=== PATIENT | female | born 1980 | race Caucasian/White ===

== ENCOUNTER 2018-03-07 12:47 | Inpatient (IN) ==
--- NOTE | 2018-03-07 13:36 | P.HPOB ---
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 Chief Complaint: urge to push History of Present Illness: 38-year-old at 37 weeks 4 days gestation chief complaint I have the urge to push. Patient of Dr. Atkinson complicated by type 1 diabetes. Previous delivery x2 Weeks Gestation:: 37 Para: 3 : 4 Review of Systems All other systems reviewed negative except as stated in HPI Medications and Allergies Active Medications: Active Medications Citric Acid/Sodium Citrate (Sodium Citrate/Citric Acid Liq) 30 ml PO DYNAMICS AX CONSULTANT ARRON Stop: 03/11/18 13:29 Diphtheria/Pertussis/Tetanus Vacc (Boostrix Vaccine Inj) 0.5 ml IM .ONCE ONE Stop: 03/08/18 16:01 Lactated Ringer's (Lr 1000 Ml Inj) 1,000 mls @ 2,000 mls/hr IV.SIG .Q30M ONE Stop: 03/07/18 13:48 Lactated Ringer's (Lr 1000 Ml Inj) 1,000 mls @ 150 mls/hr IV.CONT .Q6H40M ARRON Oxytocin (Pitocin 30 Units/Ns 500 Ml Premix) 30 units in 500 mls @ 100 mls/hr IV.SIG ONCE ONE Stop: 03/07/18 18:18 Oxytocin (Pitocin 30 Units/Ns 500 Ml Premix) 30 units in 500 mls @ 100 mls/hr IV.SIG UNSCH PRN PRN Reason: Heavy bleeding Lactated Ringer's (Lr 1000 Ml Inj) 1,000 mls @ 100 mls/hr IV.CONT .Q10H ARRON Stop: 03/08/18 14:18 Measles/Mumps/Rubella Vaccine Live (M-M-R Ii Vaccine Inj) 0.5 ml SQ .ONCE ONE Stop: 03/08/18 16:01 Oxycodone/Acetaminophen (Percocet 5/325 Mg) 1 tab PO Q4H PRN PRN Reason: PAIN SCALE 3 TO 5 Oxycodone/Acetaminophen (Percocet 5/325 Mg) 2 tab PO Q4H PRN PRN Reason: PAIN SCALE 6 TO 10 Sodium Chloride (Ns Flush) 2 ml IV.FLUSH BID ARRON Sodium Chloride (Ns Flush) 2 ml IV.FLUSH PRN PRN PRN Reason: FLUSH AFTER USING IV ACCESS Allergies Allergy/AdvReac Type Severity Reaction Status Date / Time No Known Allergies Allergy Verified 02/28/18 15:34 Home Medications Medication Instructions Recorded Confirmed Type PNV cmb#95-ferrous fumarate-FA 1 tab PO DAILY 02/28/18 03/07/18 History [] amoxicillin 500 mg PO QID 02/28/18 03/07/18 History Exam Vital signs: Vital Signs 03/07/18 12:58 Pulse Rate 114 H Blood Pressure 132/91 H Intake & Output 03/06/18 03/07/18 03/07/18 18:59 06:59 18:59 Weight 94.347 kg - Constitutional mild distress - Routine HEENT Exam Head: Present: normocephalic Eye: Present: PERRL ENT: Present: mucous membranes moist - Routine Neck Exam Present: supple - Routine Chest/Breast/Axilla Exam Chest wall: Absent: tenderness - Routine Respiratory Exam Present: CTA bilaterally - Routine Cardiovascular Exam Present: RRR - Routine Abdominal Exam Present: soft - Routine Exam Comments: Fundal height consistent with gestational age. VE 4-5/80%/-1 station question rupture of membranes-I do not feel amniotic sac. - Routine Neurological Exam Present: alert, oriented X3 Caprini VTE Risk Assessment Caprini VTE Risk Assessment: No/Low Risk (score <= 1) Caprini Risk Assessment Model: Point Value = 1 Point Value = 2 Point Value = 3 Point Value = 5 Age 41-60 Minor surgery BMI > 25 kg/m2 Swollen legs Varicose veins or History of unexplained or recurrent spontaneous Oral contraceptives or hormone replacement Sepsis (< 1 month) Serious lung disease, including pneumonia (< 1 month) Abnormal pulmonary function Acute myocardial infarction Congestive heart failure (< 1 month) History of inflammatory bowel disease Medical patient at bed rest Age 61-74 Arthroscopic surgery Major open surgery (> 45 min) Laparoscopic surgery (> 45 min) Malignancy Confined to bed (> 72 hours) Immobilizing plaster cast Central venous access Age >= 75 History of VTE Family history of VTE Factor V Leiden Prothrombin [id number] Lupus anticoagulant Anticardiolipin antibodies Elevated serum homocysteine Heparin-induced thrombocytopenia Other congenital or acquired thrombophilia Stroke (< 1 month) Elective arthroplasty Hip, pelvis, or leg fracture Acute spinal cord injury (< 1 month) Prophylaxis Regimen: Total Risk Factor Score Risk Level Prophylaxis Regimen 0-1 Low Early ambulation 2 Moderate Order ONE of the following: *Sequential Compression Device (SCD) *Heparin 5000 units SQ BID 3-4 Higher Order ONE of the following medications: *Heparin 5000 units SQ TID *Enoxaparin/Lovenox 40 mg SQ daily (WT < 150 kg, CrCl > 30 mL/min) *Enoxaparin/Lovenox 30 mg SQ daily (WT < 150 kg, CrCl > 10-29 mL/min) *Enoxaparin/Lovenox 30 mg SQ BID (WT < 150 kg, CrCl > 30 mL/min) AND/OR *Sequential Compression Device (SCD) 5 or more Highest Order ONE of the following medications: *Heparin 5000 units SQ TID (Preferred with Epidurals) *Enoxaparin/Lovenox 40 mg SQ daily (WT < 150 kg, CrCl > 30 mL/min) *Enoxaparin/Lovenox 30 mg SQ daily (WT < 150 kg, CrCl > 10-29 mL/min) *Enoxaparin/Lovenox 30 mg SQ BID (WT < 150 kg, CrCl > 30 mL/min) AND *Sequential Compression Device (SCD) Assessment and Plan - Diagnosis (1) Previous delivery, antepartum Code(s): O34.219 - Maternal care for unspecified type scar from previous delivery Status: Acute (2) Active labor at term Status: Acute (3) 37 weeks gestation of Code(s): Z3A.37 - 37 weeks gestation of Status: Acute (4) Type 1 diabetes mellitus affecting in third trimester, antepartum Code(s): O24.013 - Pre-existing type 1 diabetes mellitus, in , third trimester Status: Acute - Plan Random blood sugar now 310 patient self administered 4 units of insulin will administer another 4 units. Patient is for delivery alternatives benefits complications understood. Patient's primary ui engineer is at the bedside. Patient also desires tubal sterilization consents to be obtained.
[2018-03-07] MEDS ORDERED: Naloxone Inj 0.4 MG/ML Vial IV.PUSH PRN ×2 (13:37→15:00)
[2018-03-07] MEDS ORDERED: Oxytocin 30 Units/500ml Premix 30 UNITS/500 ML BAG IV.SIG ONE ×2 (13:37→15:54)
[2018-03-07] MEDS ORDERED: Citric Acid/Sodium Citrate Liq 30 ML UDC PO SCH (13:45)
[2018-03-07 14:08] LABS: Baso # (Auto) 0.1 th/mm3 (0.0-0.2); Baso % (Auto) 0.5 % (0.0-2.0); Eos # (Auto) 0.1 th/mm3 (0.0-0.4); Eos % (Auto) 0.6 % (0.0-4.0); Hematocrit 31.2 % (35.0-46.0); Hemoglobin 10.4 gm/dL (11.6-15.3); Lymph # (Auto) 1.2 th/mm3 (1.0-4.8); Lymph % (Auto) 10.8 % (9.0-44.0); Mean Corpuscular HGB Conc 33.5 % (32.0-36.0); Mean Corpuscular Hemoglobin 30.3 pg (27.0-34.0); Mean Corpuscular Volume 90.4 fL (80.0-100.0); Mean Platelet Volume 9.5 fL (7.0-11.0); Mono # (Auto) 0.3 th/mm3 (0.0-0.9); Mono % (Auto) 2.7 % (0.0-8.0); Neut # (Auto) 9.6 th/mm3 (1.8-7.7); Neut % (Auto) 85.4 % (16.0-70.0); Platelet Count 170 th/mm3 (150-450); Red Blood Count 3.45 mil/mm3 (4.00-5.30); Red Cell Distribution Width 12.4 % (11.6-17.2); White Blood Count 11.2 th/mm3 (4.0-11.0)
[2018-03-07] MEDS ORDERED: Morphine Sulfate PF Inj 5 MG/10 ML Ampul ONE (14:15)
[2018-03-07] MEDS ORDERED: Phenylephrine/NS 1000 MCG/10ML Syringe IV.PUSH ONE (14:49)
[2018-03-07] MEDS ORDERED: Simethicone 80 MG Chew Tablet PO PRN (15:54)
[2018-03-07] MEDS ORDERED: Dextrose 50% in Water 50 ML Vial IV.PUSH PRN (15:56)
[2018-03-07 16:05] LABS: Bacteria,Urine Few /hpf; Bilirubin,Urine Negative (Negative); Clarity,Urine Cloudy (Clear); Color,Urine Yellow (Yellw/Straw); Glucose,Urine (UA) 500 or Greater mg/dL (Negative); Leukocyte Esterase,Urine Trace (Negative); Mucus,Urine Few /lpf (Occasional); Nitrite,Urine Negative (Negative); Specific Gravity,Urine 1.018 (1.002-1.035); Squamous Epithelial Cell,Urine 10 /hpf (0-5)
[2018-03-07 16:07] LABS: Amphetamine Screen,Urine Neg (Neg); Barbiturate Screen,Urine Neg (Neg); Cannabinoid Screen,Urine Neg (Neg); Cocaine Screen,Urine Neg (Neg)
--- NOTE | 2018-03-07 16:07 | P.OBDELI ---
Procedure Note - Pre Op Diagnosis (1) Active labor at term (2) Diabetes mellitus affecting in third trimester (3) Previous delivery affecting , delivered - Post Op Diagnosis (1) Previous delivery affecting , delivered Performed by: Tramaine Atkinson MD Procedure: Repeat Low Transverse Section, Other (Bilateral Tubal lighation) Indication for Delivery: Desired elective repeat , Other (sterilization ) Informed Consent Obtained: For anesthesia, For procedure Confirmed Correct: Patient, Procedure, Site, Time-out taken Anesthesia: Spinal Medication Prior to Procedure: As documented in eMAR Monitoring During Procedure: Blood pressure monitoring, 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 Urinary Catheter: Inserted using sterile technique, To dependent drainage Sterile Preparation: Duraprep Position: Supine with wedge to left side - Operative Features Skin Incision: Pfannenstiel Uterine Incision: Low transverse w/knife / blunt ext Membranes Ruptured: Artificially Presentation: Occiput anterior Status of : Viable Placenta Delivered: Intact Medications: Antibiotics, Oxytocin Estimated blood loss (mL): 500 Procedure Tolerated: Well Maternal Condition: Stable Baby Condition: Stable Procedure in Detail: Taken to the operating room identified by name band and verbally and given a spinal anesthetic. She was prepped and draped in the usual sterile manner for a section. A time out was taken. The old incision was excised sharply and the Pfannenstiel incision was made and carried down to the fascia the fascia was nicked bilaterally and the fascia was taken off the rectus muscle by blunt and sharp dissection. The rectus muscles were spread bluntly and the peritoneum was entered under direct vision. The incision was extended with care to avoid the urinary bladder. A bladder blade was placed and a bladder flap was created in the usual fashion. The lower uterine segment was then incised sharply in a transverse manner and taken down in the midline until the uterine cavity was entered. The incision was extended with the surgeon's fingers. The vertex was grasped and with fundal pressure the vertex was delivered without difficulty hypopharynx and nasopharynx were suctioned and the remainder of the infant delivered without difficulty. The cord clamping was delayed 45 seconds and then the cord was clamped cut and the was handed over to the resuscitation team cord blood was obtained the placenta was removed manually and the uterus was curettaged twice with a wet lap. The uterus was delivered from the abdomen. The uterine incision was repaired with 0 chromic in a running fashion in a single layer. Bilateral tubal ligation was performed with polmeroy technique. 1 cm segments excised ans good hemostasis achieved. The cul-de-sac and gutters were cleaned of blood and debris the uterus was delivered back into the abdomen. The rectus muscles were reapproximated with 0 Vicryl in a running the fascia was repaired with 0 Vicryl from lateral to midline bilaterally. The skin was repaired with a 4-0 Monocryl in a subcuticular manner. Patient tolerated the procedure well and went to recovery room in good condition. - Infant : Female, Single (9# 7 oz)
[2018-03-07 16:12] LABS: Opiate Screen,Urine Neg (Neg)
[2018-03-07] MEDS ORDERED: Oxytocin 30 Units/500ml Premix 30 UNITS/500 ML BAG ONE (16:39)
[2018-03-07] MEDS ORDERED: Oxytocin 30 Units/500ml Premix 30 UNITS/500 ML BAG IV.SIG PRN ×2 (18:37→20:54)
[2018-03-07] MEDS: Insulin NovoLIN Regular Correctional Sugar Inj SQ SCH (20:56)
[2018-03-08 05:40] LABS: Baso % (Auto) 0.4 % (0.0-2.0); Eos # (Auto) 0.1 th/mm3 (0.0-0.4); Eos % (Auto) 0.8 % (0.0-4.0); Hematocrit 24.8 % (35.0-46.0); Hemoglobin 8.7 gm/dL (11.6-15.3); Lymph # (Auto) 1.2 th/mm3 (1.0-4.8); Lymph % (Auto) 10.6 % (9.0-44.0); Mean Corpuscular HGB Conc 35.3 % (32.0-36.0); Mean Corpuscular Hemoglobin 30.9 pg (27.0-34.0); Mean Corpuscular Volume 87.5 fL (80.0-100.0); Mean Platelet Volume 8.6 fL (7.0-11.0); Mono # (Auto) 0.8 th/mm3 (0.0-0.9); Mono % (Auto) 6.9 % (0.0-8.0); Neut # (Auto) 9.3 th/mm3 (1.8-7.7); Neut % (Auto) 81.3 % (16.0-70.0); Platelet Count 194 th/mm3 (150-450); Red Blood Count 2.83 mil/mm3 (4.00-5.30); Red Cell Distribution Width 12.6 % (11.6-17.2); White Blood Count 11.4 th/mm3 (4.0-11.0)
--- NOTE | 2018-03-08 08:32 | P.PNOB ---
Subjective Post day: 1 Interval history: doing well accu check good Objective Vital Signs/I&O: Vital Signs 03/07/18 13:21 03/07/18 15:50 03/07/18 16:10 Temperature 98.1 F Pulse Rate 108 H 108 H 100 H Respiratory Rate 21 17 Blood Pressure 157/75 H 128/59 L 113/51 L 03/07/18 16:25 03/07/18 16:34 03/07/18 16:47 Temperature Pulse Rate 92 H 81 87 Respiratory Rate 21 16 14 Blood Pressure 106/55 L 102/49 L 119/55 L 03/07/18 18:10 03/07/18 20:30 03/07/18 23:54 Temperature 97.5 F L 97.7 F 98.2 F Pulse Rate 86 89 85 Respiratory Rate 17 19 17 Blood Pressure 151/73 H 149/77 H 125/71 03/08/18 04:00 Temperature 98.7 F Pulse Rate 73 Respiratory Rate 18 Blood Pressure 122/58 L Intake & Output 03/07/18 03/08/18 03/08/18 18:59 06:59 18:59 Intake Total 1000 / 1000 Balance 1000 / 1000 Weight 118 kg Intake: IV 1000 / 1000 LR 1000 mL Inj 1,000 ML @ 100 1000 / 1000 mls/hr IV.CONT .Q10H [facility] Rx#: [id number] Result Diagrams: 03/08/18 05:05 Objective Remarks: GENERAL: Well-nourished, well-developed patient. . ABDOMEN/GI: Abdomen soft, non-tender. Fundus: Firm, non-tender at umbilicus. GENITOURINARY: Light to moderate bleeding. EXTREMITIES: No cyanosis or edema, non-tender, without signs of DVT. Medications and IVs: Active Medications Dextrose (D50w Vial) 50 ml IV.PUSH UNSCH PRN PRN Reason: PER HYPOGLYCEMIA PROTOCOL Diphenhydramine HCl (Benadryl Inj) 25 mg IV.PUSH Q6H PRN PRN Reason: MILD TO MODERATE ITCHING Stop: 03/08/18 14:59 Diphenhydramine HCl (Benadryl) 50 mg PO Q6H PRN PRN Reason: MILD TO MODERATE ITCHING Stop: 03/08/18 14:59 Diphtheria/Pertussis/Tetanus Vacc (Boostrix Vaccine Inj) 0.5 ml IM .ONCE ONE Stop: 10/04/18 16:01 Glucagon (Glucagon Inj) 1 mg OTHER PRN PRN PRN Reason: for Hypoglycemia Protocol Lactated Ringer's (Lr 1000 Ml Inj) 1,000 mls @ 100 mls/hr IV.CONT .Q10H ARRON Stop: 03/08/18 16:53 Last Admin: 03/08/18 06:36 Dose: 100 mls/hr Oxytocin (Pitocin 30 Units/Ns 500 Ml Premix) 30 units in 500 mls @ 100 mls/hr IV.SIG PRN PRN PRN Reason: Heavy bleeding Stop: 03/08/18 20:53 Acetaminophen (Ofirmev Inj) 1,000 mg in 100 mls @ 400 mls/hr IV.SIG Q8H ARRON Stop: 03/08/18 15:19 Last Admin: 03/07/18 23:31 Dose: 400 mls/hr Ibuprofen (Motrin) 600 mg PO Q6HR PRN PRN Reason: cramping Insulin Human Regular (Novolin R Correctional Sugar Inj) 0 units SQ ACHS AND 3AM ARRON; Protocol Last Admin: 03/07/18 20:56 Dose: Not Given Ketorolac Tromethamine (Toradol Inj) 30 mg IM Q6H PRN PRN Reason: SEE LABEL COMMENTS Stop: 03/12/18 15:53 Measles/Mumps/Rubella Vaccine Live (M-M-R Ii Vaccine Inj) 0.5 ml SQ .ONCE ONE Stop: 03/08/18 16:01 Miscellaneous Information (Misc Nursing Information) 1 each OTHER UNSCH PRN PRN Reason: SEE LABEL COMMENTS Stop: 03/08/18 14:59 Miscellaneous Information ([facility] [place]) 1 each OTHER UNSCH PRN PRN Reason: SEE LABEL COMMENTS Stop: 03/08/18 14:59 Naloxone HCl (Narcan Inj) 0.4 mg IV.PUSH PRN PRN PRN Reason: Resp rate < 10 Naloxone HCl (Narcan Inj) 0.4 mg IV.PUSH UNSCH PRN PRN Reason: SEE LABEL COMMENTS Stop: 03/08/18 14:59 Ondansetron HCl (Zofran Inj) 4 mg IV.PUSH Q6H PRN PRN Reason: NAUSEA OR VOMITING Oxycodone/Acetaminophen (Percocet 5/325 Mg) 1 tab PO Q4H PRN PRN Reason: PAIN SCALE 3 TO 5 Last Admin: 03/08/18 06:36 Dose: 1 tab Oxycodone/Acetaminophen (Percocet 5/325 Mg) 2 tab PO Q4H PRN PRN Reason: PAIN SCALE 6 TO 10 Simethicone (Mylicon Chew) 80 mg PO QID PRN PRN Reason: FLATULENCE Sodium Chloride (Ns Flush) 2 ml IV.FLUSH BID ARRON Sodium Chloride (Ns Flush) 2 ml IV.FLUSH PRN PRN PRN Reason: FLUSH AFTER USING IV ACCESS Assessment and Plan - Diagnosis (1) Diabetes mellitus affecting in third trimester Code(s): O24.913 - Unspecified diabetes mellitus in , third trimester Status: Acute (2) Previous delivery affecting , delivered Code(s): O34.219 - Maternal care for unspecified type scar from previous delivery Status: Acute
[2018-03-08] MEDS: Ibuprofen 600 MG Tablet PO PRN ×2 (08:38→15:28)
[2018-03-08] MEDS: Insulin NovoLIN Regular Correctional Sugar Inj SQ SCH (08:43)
[2018-03-08] MEDS ORDERED: Measles/Mumps/Rubella Vaccine Inj 0.5 ML Vial SQ ONE (16:00)
[2018-03-08] MEDS ORDERED: Diphtheria/Tetanus/Pertussis Vaccine Inj 0.5 ML Syringe IM ONE (16:00)
[2018-03-08 19:56] VITALS: RESP 18
[2018-03-09] MEDS: Ibuprofen 600 MG Tablet PO PRN ×2 (03:11→17:02)
[2018-03-09] MEDS: Insulin NovoLIN Regular Correctional Sugar Inj SQ SCH ×3 (07:23→17:32)
[2018-03-09] MEDS ORDERED: Ketorolac Inj 30 MG/ML (IVP) Vial IV.PUSH ONE (07:42)
--- NOTE | 2018-03-09 07:49 | P.PNOB ---
Subjective Post day: 2 Interval history: 38 yo patient had repeat CS with poorly controlled diabetes. she has insulin pump. complains of cramps that motrin not working Objective Vital Signs/I&O: Vital Signs 03/08/18 08:00 03/08/18 12:00 03/08/18 19:55 Temperature 98.0 F 98.9 F 98.5 F Pulse Rate 83 90 86 Respiratory Rate 20 20 18 Blood Pressure 114/62 100/65 112/67 Result Diagrams: 03/08/18 05:05 Objective Remarks: GENERAL: Well-nourished, well-developed patient. CARDIOVASCULAR: Regular rate and rhythm without murmurs, gallops, or rubs. RESPIRATORY: Breath sounds equal bilaterally. No accessory muscle use. ABDOMEN/GI: Abdomen soft, non-tender. Fundus: Firm, non-tender at umbilicus. GENITOURINARY: Light to moderate bleeding. EXTREMITIES: No cyanosis or edema, non-tender, without signs of DVT. Medications and IVs: Active Medications Dextrose (D50w Vial) 50 ml IV.PUSH UNSCH PRN PRN Reason: PER HYPOGLYCEMIA PROTOCOL Docusate Sodium (Colace) 100 mg PO BID ARRON Glucagon (Glucagon Inj) 1 mg OTHER PRN PRN PRN Reason: for Hypoglycemia Protocol Ibuprofen (Motrin) 600 mg PO Q6HR PRN PRN Reason: cramping Last Admin: 03/09/18 03:11 Dose: 600 mg Insulin Human Regular (Novolin R Correctional Sugar Inj) 0 units SQ ACHS AND 3AM ARRON; Protocol Last Admin: 03/09/18 07:23 Dose: Not Given Ketorolac Tromethamine (Toradol Inj) 30 mg IM Q6H PRN PRN Reason: SEE LABEL COMMENTS Stop: 03/12/18 15:53 Ketorolac Tromethamine (Toradol Inj) 30 mg IV.PUSH ONCE ONE Stop: 03/09/18 07:43 Naloxone HCl (Narcan Inj) 0.4 mg IV.PUSH PRN PRN PRN Reason: Resp rate < 10 Ondansetron HCl (Zofran Inj) 4 mg IV.PUSH Q6H PRN PRN Reason: NAUSEA OR VOMITING Oxycodone/Acetaminophen (Percocet 5/325 Mg) 1 tab PO Q4H PRN PRN Reason: PAIN SCALE 3 TO 5 Last Admin: 03/08/18 06:36 Dose: 1 tab Oxycodone/Acetaminophen (Percocet 5/325 Mg) 2 tab PO Q4H PRN PRN Reason: PAIN SCALE 6 TO 10 Last Admin: 03/09/18 07:17 Dose: 2 tab Simethicone (Mylicon Chew) 80 mg PO QID PRN PRN Reason: FLATULENCE Last Admin: 03/09/18 07:17 Dose: 80 mg Sodium Chloride (Ns Flush) 2 ml IV.FLUSH BID ARRON Last Admin: 03/09/18 03:34 Dose: Not Given Sodium Chloride (Ns Flush) 2 ml IV.FLUSH PRN PRN PRN Reason: FLUSH AFTER USING IV ACCESS Assessment and Plan - Diagnosis (1) Diabetes mellitus affecting in third trimester Code(s): O24.913 - Unspecified diabetes mellitus in , third trimester Status: Acute (2) Previous delivery affecting , delivered Code(s): O34.219 - Maternal care for unspecified type scar from previous delivery Status: Acute
[2018-03-09] MEDS: Docusate Sodium 100 MG Capsule PO SCH (08:39)
[2018-03-10] MEDS: Insulin NovoLIN Regular Correctional Sugar Inj SQ SCH ×4 (00:16→12:24)
[2018-03-10] MEDS: Ibuprofen 600 MG Tablet PO PRN ×3 (01:10→14:10)
[2018-03-10] MEDS: Docusate Sodium 100 MG Capsule PO SCH ×2 (05:31→08:00)
[2018-03-10 08:18] VITALS: BP 126/69; PULSE 68; TEMP 97.8
--- NOTE | 2018-03-10 10:14 | P.PNOB ---
Subjective Post day: 3 Interval history: post CS day #3 sugar controlled and doing well. Baby in NICU breast feeding Objective Vital Signs/I&O: Vital Signs 03/09/18 20:00 03/10/18 08:00 Temperature 98.0 F 97.8 F Pulse Rate 64 68 Respiratory Rate 18 18 Blood Pressure 128/68 126/69 Result Diagrams: 03/08/18 05:05 Objective Remarks: GENERAL: Well-nourished, well-developed patient. ABDOMEN/GI: Abdomen soft, non-tender. Fundus: Firm, non-tender at umbilicus. GENITOURINARY: Light to moderate bleeding. EXTREMITIES: No cyanosis or edema, non-tender, without signs of DVT. Medications and IVs: Active Medications Dextrose (D50w Vial) 50 ml IV.PUSH UNSCH PRN PRN Reason: PER HYPOGLYCEMIA PROTOCOL Docusate Sodium (Colace) 100 mg PO BID ARRON Last Admin: 03/10/18 08:00 Dose: 100 mg Glucagon (Glucagon Inj) 1 mg OTHER PRN PRN PRN Reason: for Hypoglycemia Protocol Ibuprofen (Motrin) 600 mg PO Q6HR PRN PRN Reason: cramping Last Admin: 03/10/18 08:00 Dose: 600 mg Insulin Human Regular (Novolin R Correctional Sugar Inj) 0 units SQ ACHS AND 3AM ARRON; Protocol Last Admin: 03/10/18 08:04 Dose: Not Given Ketorolac Tromethamine (Toradol Inj) 30 mg IM Q6H PRN PRN Reason: SEE LABEL COMMENTS Stop: 03/12/18 15:53 Naloxone HCl (Narcan Inj) 0.4 mg IV.PUSH PRN PRN PRN Reason: Resp rate < 10 Ondansetron HCl (Zofran Inj) 4 mg IV.PUSH Q6H PRN PRN Reason: NAUSEA OR VOMITING Oxycodone/Acetaminophen (Percocet 5/325 Mg) 1 tab PO Q4H PRN PRN Reason: PAIN SCALE 3 TO 5 Last Admin: 03/09/18 15:41 Dose: 1 tab Oxycodone/Acetaminophen (Percocet 5/325 Mg) 2 tab PO Q4H PRN PRN Reason: PAIN SCALE 6 TO 10 Last Admin: 03/10/18 08:01 Dose: 2 tab Simethicone (Mylicon Chew) 80 mg PO QID PRN PRN Reason: FLATULENCE Last Admin: 03/09/18 07:17 Dose: 80 mg Sodium Chloride (Ns Flush) 2 ml IV.FLUSH BID ARRON Last Admin: 03/10/18 08:06 Dose: Not Given Sodium Chloride (Ns Flush) 2 ml IV.FLUSH PRN PRN PRN Reason: FLUSH AFTER USING IV ACCESS Assessment and Plan - Diagnosis (1) Diabetes mellitus affecting in third trimester Code(s): O24.913 - Unspecified diabetes mellitus in , third trimester Status: Acute (2) Previous delivery affecting , delivered Code(s): O34.219 - Maternal care for unspecified type scar from previous delivery Status: Acute
--- NOTE | 2018-03-10 10:21 | P.DS ---
Date of admission: 03/07/18 13:25 Primary care physician: Rema Gottlieb MD Brief History from admission: 38 yo for CS because of labor with scheduled repeat CS. She has DM and insulin pump DS: Diagnosis - Discharge Diagnosis (1) Diabetes mellitus affecting in third trimester Status: Acute (2) Previous delivery affecting , delivered Status: Acute DS: Medications - Discharge Medications Prescriptions: oxycodone-acetaminophen 2 tab PO Q4H PRN 3 Days #24 tab PRN Reason: Pain Scale 6 To 10 DS: Summary Hospital Course: LTCS doing well. Glucose controlled better on pump. ^Yesterday low glucose improved now - Time Spent with Patient Total time spent providing and/or coordinating discharge services: Less than 30 minutes Exam Vital signs: Vital Signs 03/09/18 20:00 03/10/18 08:00 Temperature 98.0 F 97.8 F Pulse Rate 64 68 Respiratory Rate 18 18 Blood Pressure 128/68 126/69 - Constitutional no acute distress Results Procedures completed during hospitalization: CS and BTL Labs on day of discharge: Labs from last 24 hours 03/09/18 03/09/18 03/09/18 19:54 16:56 16:28 POC Glucose 225 H 133 H 88 03/09/18 03/09/18 03/09/18 16:06 15:44 11:21 POC Glucose 52 L 62 L 102 03/09/18 03/09/18 11:04 10:43 POC Glucose 91 85 Discharge Plan - Discharge Disposition Patient Disposition: 01 Discharge Home - Discharge Condition Condition: Good - Discharge Order Discharge Orders: Discharge Order (Routine); Ordered 03/10/18 Ordered By: Tramaine Atkinson - Physicians Team Primary Care Provider: Rema Gottlieb Attending Provider: Tramaine Atkinson
== END 2018-03-10 15:12 | disposition home or self-care (01) ==
LOC: HOBED 12:47 → H2E 13:25 → H1EA 17:25
PROVIDERS: ADMIT Obstetrics & Gynecology; ATTEND Obstetrics & Gynecology